=== PATIENT | female | born 1960 | race Caucasian/White ===

== ENCOUNTER 2023-11-23 15:30 | Outpatient (RCR) | payer MEDICAID, SELFPAY ==
--- NOTE | 2023-10-12 17:03 | HP.OTEVAL_ITS ---
Patient's Visit Information Visit Information Visit Information: TERRIE NEAL is a 62 year old F, referred to Occupational Therapy by ADOLFO ARANA, with a diagnosis of subarachnoid hemorrhage I60.9, F01.C0, I63.9. Date of Evaluation: 10/12/23 Occupational Therapist: Denisse Noble Subjective Subjective: This 62 year old female referred to OT services following CVA/anuerysm 09/19/22. pt was [facility]ight[facility] for repair spent 21 days i n ICU then went to [facility] for 30 days with 7 days of therapy trach and feed tube removed. shunt placed dec/jan when [facility] and then went to [facility] for approx 10 days. has had PT and OT home health. pt is currently a dori transfer and is incontinent. pt is non verbal at this time. communicated by means of yes no by looking at yes/ no sign and or blinking once or twice. Objective Objective/Observation: This female presents in tilt in space custom wheelchair positioned in flexor synergy of B UEs. Pt with head turned to the R side and little eye contact with therapist. ROM Elbow: L -30/ 110 R -70/110 ROM Comments: BUE positioned in flexor synergy LUE does demonstrate increased ability to move through shoulder elbow and hand ROM in comparison to RUE Pts RUE tight in elbow flexion increased tone compare to L side with difficulty ranging joints Possible muscle shortening at R elbow joint lacking extension see above R hand lacking full extension of digits with difficult passive motion to get pt into safe position of hand Strength Strength Comments: unable to formally assess due to decreased command following tone throughout BUEs Movement Movement Comments: modified keaton scale score L 3 R 4 Cognitive Skills Follows Directions: No (not during session per she will for him on occasion) Short Term Memory Impaired: Yes Nine Hole Peg Comments: unable to actively manipulate Quick DASH-Disab of Arm,Shoulder& Hand Quick DASH Score: 95.4525 Goals Goal:: pt will demonstrate improved R elbow extension to -30 or less in order to promote proper joint alignment and function pt will demonstrate the ability to actively perform LUE supination with elbow flexion to bring hand to mouth 3/3 trials for use of adaptive tool such as universal cuff for self feeding task Goal:: pt will demonstrate the ability to properly hydrate self on own with use of adaptive cup and straw mounted to wheelchair set up assist in order to maximize highest level of I in self care abilities Goal:: pt will demonstrate the ability to turn head to the R and attend to stimulus for 5 min duration in order to increase interaction with environment Goal:: pt will improve modified keaton scale score LUE to 2 in order to promote functional movement pt will improve modified keaton scale score RUE to 3 in order to prevent contracture formation and promote appropriate joint protection and positioning Goal:: Pt caregiver will demonstrate 100% accuracy in HEP provided to improve ROM as well as overall positioning and joint ROM for optimal outcome Rehabilitation General Assessment: This 62 year old female referred due to subarachnoid hemorrhage CVA severe vascular dementia and monoplegia impacting all aspects of pt function. pt is dependent in self care abilities and uses a dori for t ransfers. pt is dependent in command following. This pt presents with increased tone of BUEs more severely noted in the RUE with passive movement difficult especially at elbow extension and digit extension. per he has already been through process of getting pt new braces and will be arriving this coming week. pt would benefit from OT services to decrease tone, promote highest level of I in self care through use of adaptive equipment and devices and provide caregiver ed and training 1-2x a week for 6 weeks. Rehabilitation Potential: Questionable Anticipated Interventions Anticipated Interventions: A/AAROM/PROM, Triggerpoint Release, Modalities, Neuro Reeducation, Visual/Perceptual Skills, ADL Training, Education re assistive Equipment, Education re Diagnosis, Caregiver Training and Home Program Visit Plan Frequency: 1-2x /Week Duration: 6 Weeks General Plan: AROM/AAROM/PROM bracing positioning adaptive equipment / durable medical equipment tone reduction caregiver ed and training TEXT: Thank you for the opportunity to evaluate your patient. For Medicare and Medicare HMO plans, please review the plan of care and approve it. It will need to be FAXED BACK to us at [phone] for Medicare purposes. Please let me know if there are questions or concerns regarding this plan of care. Physician Signature: Date:
--- NOTE | 2023-10-15 13:07 | HP.SP.EVAL ---
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 stated that it has been intermittent at times even in facilities. Other Relevant Medical History/Diagnoses/Surgery: September 19, 2022 patient had a CVA/aneurysm. reported that she was taken to [facility] then transferred to [facility]. She was in the ICU for 21 days and then transferred to [facility] in [place]. She was there until going to [facility] for 3 months. She then was transferred to [facility] for approximately 1 week then home. After the stroke she was able to speak and use single words. In Dec-Jan 2023 she had a shunt placed and after that she was non verbal. She was NPO initially but now is on a full oral diet with PEG tube removed. Script lists diagnoses as subarachnoid hemorrhage, severe vascular dementia without behavior disurbance, CVA. Medications related to this diagnosis: Vim Pat, carodaveal, amplidyne, baclofen, b-1 Diagnosis Diagnosis: Severe receptive/ expressive language deficits, CVA, Severe vascular dementia, Pain Is pain an issue with your current prescribed condition?: No Personal Preferred language: Kenyan Subjective Dysphagia Current Diet Solids Current Diet: Mechanical Soft, Chopped, Minced and Pureed Current Diet Liquids Current Liquids: Thin Comments Dysphagia: -: reported that she has gained 20 pounds and no longer has a PEG tube. He does a mix of pureed foods, chopped foods and soft solids. He completed feeds her but did state that she will raise a glass towards her mouth. Objective Cog/Ling/Com Test Administered Wkwhwvamv-Cakzcyddsc-Zjxpetivarilo Assessment Administered: Yes Ucydxmeni-Riqeqalcmz-Udbahdpnywnkb Assessment: Cognitive ? Linguistic skills were evaluated using patient/family interview, skilled observation and informal evaluation through tasks completed by the patient. Answer Yes/No Questions Simple: Severe Follows Commands 1 Step: Severe Automatic Sequences Automatic Sequences: Severe Naming Responsive naming: Severe Conversational Tasks Conversational Tasks: Severe Comments: Patient did not complete any receptive language tasks given by either or therapist. She did look around the room but was not able to be at the table due to her positioning in a laid back chair that is her transport chair with legs up. She held a stuffed animal the entire time. She moved the stuffed animal up at times but stated that she just moves it around. Trialed limited yes/no questions but she did not respond using any head movements. No labeling or independent use of words. Comments Comments: Currently, there is no communication system being used, either low tech or high tech. Reference: Neuro-QoL instrument Radiation Oncology Patient Other Other Language: -: Anna followed her with her eyes and made eye contact with therapist. No directions followed today but reported that she will open her mouth when a swab is presented. Prior to the shunt being placed in fall 2022 she was able to say words to communicate such as water and her 's name along with kids names. Currently she does not say any words. Ariel Barrientos speech therapist was using head turn/eye gaze for yes/no but no further information was provided for that modality. When asked by her what her name was she appeared to get teary when she looked to him. Currently, patient has no ability to communicate. Plan Plan Plan: Therapy is recommended 1-2 times per week to focus on trialing a low tech AAC option for patient to communicate basic wants and needs to all communication partners. Recommendations Treatment Warranted: Yes Treatment Warranted: Receptive/ Expressive Language Progress Prognosis: Fair Frequency Frequency: 1-2x /Week Duration: 4 Weeks Patient/Family Goal Patient/Family Goal: would like her to have a way to communicate. Goals that are Established Determination:: Goals will be added/modified as deemed necessary and appropriate. Therapy will be discontinued when results of re-evaluation indicate therapy is no longer needed or lack of progress has been documented. Goal #1-5 Goal #1: Yasmin will eye gaze or head turn towards yes/no answers in written form on 50% of trials with maximal cues. Goal #2: Yasmin will eye gaze or head turn towards objects either in pictures or objects on 50% of trials with maximal cues. Goal #3: Caregiver education on low tech AAC use and home carry over activities. Education Patient has Indicated that the Following Identified Educational Needs: Cognitively Impaired and Hearing/Vision/Speech Impaired Other Educational Needs: vascular dementia ; receptive and expressive aphasia Patient Instruction Patient Education: Diagnosis, Treatment Plan and Goals Person Taught: Significant Other Response to teaching: Verbalize understanding
--- NOTE | 2023-11-15 12:11 | HP.SP.DC_ITS ---
ST Discharge Summary Discharged: Discharge: Yasmin Smith is discharged from is discharged from [facility] speech therapy as of November 14, 2023. She was evaluated on 10/10/23 with therapy recommended for 4 weeks to develop a low tech communication system for the patient and . She attended all 4 visits, and her was present for 3 out of the 4 sessions. Her goals were to answer basic yes/no questions with eye gaze towards written yes/no questions along with object identification for a choice of two objects/pictures with eye gaze. Her was educated on how to continue to carry over this system at home to give her choices. She did not make progress in the therapy sessions, however, her stated that she worked with a daughter and did better. Her was in agreement with discharge as he had completed education regarding communication choices. Please see daily notes for complete details. Thank you for allowing me to participate in the care of this patient.
--- NOTE | 2023-11-23 17:14 | HP.OTDCNRP_ITS ---
Patient Information Patient Information: TERRIE NEAL was seen in my office for initial evaluation on 10/12/23. The following Plan of Care was established for this patient: POC Established Initial Frequency: 1-2x /Week Initial Duration: 6 Weeks Plan: discharge Anticipated Interventions Anticipated Interventions: A/AAROM/PROM, Triggerpoint Release, Modalities, Neuro Reeducation, Visual/Perceptual Skills, ADL Training, Education re assistive Equipment, Education re Diagnosis, Caregiver Training and Home Program Last Seen Last Seen: This patient was last seen in our office 11/23/23. Pertinent comments regarding their Occupational therapy will appear below: This 62 year old female seen for OT s/p CVA. Pt with limited progress made in completion of active movement due to inability to follow goal oriented command. Pt tone remains the same is able to stretch and provide ROM program at home. Ed provided on adaptive tools available as well as sensory stimulation for home. 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 At this point I will be discontinuing this patient from occupational therapy. I would be happy to see this patient again in the future if found appropriate by the physician. Thank you! Denisse Noble
--- NOTE | 2023-11-23 17:14 | HP.OTDCSUM ---
Discharge Summary D/C Summary: It has been my pleasure to treat TERRIE NEAL under orders from ADOLFO ARANA, for the diagnosis of subarachnoid hemorrhage I60.9, F01.C0, I63.9 for a total of 11 visit(s). Please see the following information for a summary of their discharge status. Overall Improvement % Improvement: 0 Objective Objective/Function: BUEs with increased tone in flexor synergy pattern impacting ROM as well as function. Pt with increased tone in RUE with passive movement difficult to not able. LUE able to be passively moved with time. pt is resistive to movement however will allow at times to complete movement. Pt is unable to actively perform controlled motor movement on command. possible muscle shortening noted at R elbow into flexion. This pt would benefit from OT services to decrease tone improve ROM, maximize level of I through use of adaptive equipment/ devices and provide caregiver ed and training. Goals Patient Goals: Decrease Swelling/Stiffness, Increase ROM, Be More Independent in ADLS and Decrease Muscle Tone Goal:: pt will demonstrate improved R elbow extension to -30 or less in order to promote proper joint alignment and function pt is now -50 GOAL NOT MET pt will demonstrate the ability to actively perform LUE supination with elbow flexion to bring hand to mouth 3/3 trials for use of adaptive tool such as universal cuff for self feeding task -- unable to follow any active command for goal oriented movement GOAL NOT MET Goal:: pt will demonstrate the ability to properly hydrate self on own with use of adaptive cup and straw mounted to wheelchair set up assist in order to maximize highest level of I in self care abilities -- ed provided to on hand free cup however has not followed up GOAL NOT MET Goal:: pt will demonstrate the ability to turn head to the R and attend to stimulus for 5 min duration in order to increase interaction with environment --- pt does not actively turn head able to assist in turning head GOAL NOT MET Goal:: pt will improve modified keaton scale score LUE to 2 in order to promote functional movement -- no changes noted in tone GOAL NOT MET pt will improve modified keaton scale score RUE to 3 in order to prevent contracture formation and promote appropriate joint protection and positioning -- no chnages noted in tone GOAL NOT MET Goal:: Pt caregiver will demonstrate 100% accuracy in HEP provided to improve ROM as well as overall positioning and joint ROM for optimal outcome -- caregiver able to demo 100% accuracy in stretch ROM program GOAL MET Plan Plan: discharge D/C Information d/c sentence: If there are questions or concerns regarding this patient's occupational therapy, please fell free to call me at [phone]. Thank you for the referral of this patient. Sincerely, Denisse Noble
== END 2023-11-23 19:00 | disposition home or self-care (01) ==
LOC: PT 15:30
DX: I60.9 Nontraumatic subarachnoid hemorrhage, unspecified (principal); F01.C0 Vascular dementia, severe, without behavioral disturbance, psychotic disturbance, mood disturbance, and anxiety; G83.21 Monoplegia of upper limb affecting right dominant side; Z86.73 Personal history of transient ischemic attack (TIA), and cerebral infarction without residual deficits
CPT/HCPCS: 92507; 92523; 97110; 97112; 97140; 97163; 97166; 97530